=== PATIENT | female | born 1995 | race Caucasian/White ===

== ENCOUNTER 2017-01-18 08:26 | Emergency (ER) | payer OTHER ==
[~2017-01-18] VITALS: Wt 79.0 kg
[~2017-01-18 08:26] MED LIST: BEN50 PO; DIPH177. TP; FER325 PO; PRED20TA PO
--- NOTE | 2017-01-18 13:56 | ERD ---
ER Documentation Chief Complaint Date/Time DATE: 01/18/17 TIME: 13:46 Chief Complaint R FINGER PAIN HPI 21-year-old female presented to ED with right hand pain. Patient stated that she had sustained a boxer's fracture 9 days ago. She was seen at a different ER at that time, and was given a splint. She took the splint off 2 days ago when it was soiled by her son's diaper. She is here today to request another splint. Patient also stated that she was given a referral to orthopedist, but she is unable to obtain an appointment. Denies worsening pain at the fracture site. Denies numbness or tingling distal to the injury. ROS All systems reviewed and are negative except as per history of present illness. Medications Home Meds Active Scripts Diphenhydramin/Benzethon/Zinc (Calagel Gel) 177.44 Ml Gel..ml., 1 APPLIC TP Q4 Y for ITCHING, #1 BOTTLE Prov:RODO BENJAMIN DESIGN ENGINEER 09/17/16 Prednisone* (Prednisone*) 20 Mg Tab, 60 MG PO DAILY for 3 Days, TAB Prov:RODO BENJAMIN. DESIGN ENGINEER 09/17/16 Diphenhydramine Hcl* (Benadryl*) 50 Mg Cap, 50 MG PO Q6H Y for ITCHING/RASH, # 30 CAP Prov:RODO BENJAMIN DESIGN ENGINEER 09/17/16 Ferrous Sulfate* (Ferrous Sulfate*) 325 Mg Tabec, 325 MG PO BID for 30 Days, TAB Prov:CROW PHELPS 08/21/14 Allergies Allergies: Coded Allergies: Penicillins (Verified Allergy, Unknown, 05/03/16) PMhx/Soc Medical and Surgical Hx: pt denies Medical Hx, pt denies Surgical Hx History of Surgery: No Anesthesia Reaction: No Hx Neurological Disorder: No Hx Respiratory Disorders: No Hx Cardiac Disorders: No Hx Psychiatric Problems: No Hx Miscellaneous Medical Probl: No Hx Alcohol Use: No Hx Substance Use: Yes (grecia 1 x 4months) Hx Tobacco Use: Yes (3/day) Smoking Status: Current every day smoker Physical Exam Vitals Vital Signs Date Time Temp Pulse Resp B/P Pulse Ox O2 Delivery O2 Flow Rate FiO2 01/18/17 08:27 98.0 75 18 128/71 99 Physical Exam General impression: Well-developed, well-nourished. Alert, oriented, in no acute distress Head: Normocephalic, atraumatic. Respiration: Normal respiratory effort. Lungs clear to auscultate bilaterally. No wheezes, rales or rhonchi. Cardiovascular: Regular rate and rhythm. No murmurs or extra heart sounds. Extremities: Slight angulation noted in the distal metacarpal of the right hand with slight ecchymosis surrounding. Neurovascularly intact distally. Normal range of motion of the wrist. Neuro: Mental status normal, speech normal. PAYROLL TECHNICIAN grossly intact. Skin: Normal turgor. No rash or lesions. Psych: Normal mood and affect. Procedures/MDM The area of injury was immobilized with a ulnar gutter splint. Patient was noted to be comfortable and neurovascularly intact both before and after the immobilization. Patient had a previously diagnosed boxer's fracture of the right fifth metacarpal. I did not feel she needs repeat imaging at this time. No sign of compartment syndrome. She is provided with a splint and referral to primary clinics. Patient advised to see a PCP for Ortho [facility] referral. Patient appears well, stable for discharge and outpatient management. Medical decision making shared with patient and family. Education provided to patient and family. Patient and family expressed understanding of the plan. Medications on discharge: None. Follow-up: Primary care provider in 2-3 days or return to ED if worse. Departure Diagnosis: Primary Impression: Right hand fracture Condition: Good Patient Instructions: Fracture, Hand (Closed) Referrals: [facility] YOU HAVE RECEIVED A MEDICAL SCREENING EXAM AND THE RESULTS INDICATE THAT YOU DO NOT HAVE A CONDITION THAT REQUIRES URGENT TREATMENT IN THE EMERGENCY DEPARTMENT. FURTHER EVALUATION AND TREATMENT OF YOUR CONDITION CAN WAIT UNTIL YOU ARE SEEN IN YOUR DOCTORS OFFICE WITHIN THE NEXT 1-2 DAYS. IT IS YOUR RESPONSIBILITY TO MAKE AN APPOINTMENT FOR FOLOW-UP CARE. IF YOU HAVE A PRIMARY DOCTOR --you should call your primary doctor and schedule an appointment IF YOU DO NOT HAVE A PRIMARY DOCTOR YOU CAN CALL OUR PHYSICIAN REFERRAL HOTLINE AT IF YOU CAN NOT AFFORD TO SEE A PHYSICIAN YOU CAN CHOSE FROM THE FOLLOWING [facility] [address] [facility]. [facility] [address] [facility]. [facility] [address] [facility]. [facility] [address] [facility]. [facility] [address] [facility]. [facility] [address] Additional Instructions: SPECIALIST: YOU HAVE A MEDICAL CONDITION WHICH REQUIRES YOU TO SEE A SPECIALIST WITHIN THE NEXT 1-2 DAYS. PLEASE FOLLOW UP WITH YOUR PRIMARY PHYSICIAN FOR REFFERAL.IF YOU DO NOT HAVE A PRIMARY CARE PHYSICIAN AND/OR YOU CAN NOT AFFORD TO SEE A PHYSICIAN THE FOLLOWING RESOURCES HAVE BEEN SUPPLIED TO YOU. IT IS YOUR RESPONSIBILITY TO BE SEEN BY THE SPECIALIST RODO BENJAMIN NP Jan 18, 2017 13:56
== END 2017-01-18 10:58 | disposition home or self-care (01) ==
LOC: FTE 08:26
DX: S62.91XA Unspecified fracture of right hand, initial encounter for closed fracture (principal); F17.210 Nicotine dependence, cigarettes, uncomplicated; X58.XXXA Exposure to other specified factors, initial encounter; Y92.9 Unspecified place or not applicable
CPT/HCPCS: 29125; Z7502